=== PATIENT | female | born 1990 ===

== ENCOUNTER 2020-04-10 10:03 | Inpatient (IN) | payer BC, MEDICAID ==
[~2020-04-10] VITALS: Ht 162.6 cm; Wt 100.0 kg
[2020-04-10] MEDS ORDERED: METOCLOPRAMIDE 5 MG/ML, 2ML IV ONE (10:30)
[2020-04-10] MEDS ORDERED: SODIUM CITRATE/CITRIC ACID 30 ML UDC PO ONE (10:30)
[2020-04-10] MEDS ORDERED: LACTATED RINGERS 1,000 ML IVBOLUS ONE (10:30)
[2020-04-10] MEDS ORDERED: ONDANSETRON 2MG/ML, 2ML IVPush ONE (10:30)
[2020-04-10] MEDS: PLEASE ENTER ALLERGIES MC SCH ×2 (11:00→19:00)
[2020-04-10] MEDS ORDERED: PLEASE ENTER HEIGHT AND WEIGHT MC SCH (11:00)
[2020-04-10] MEDS ORDERED: OXYTOCIN 30U/ 0.9% NaCL 500ML 500 ML ONE (11:10)
[2020-04-10] MEDS ORDERED: SODIUM CITRATE/CITRIC ACID 30 ML UDC ONE (11:10)
[2020-04-10] MEDS ORDERED: METOCLOPRAMIDE 5 MG/ML, 2ML ONE (11:10)
[2020-04-10] MEDS ORDERED: NEWBORN KIT ONE (11:10)
[2020-04-10 11:21] LABS: BASOPHILS # (AUTO) 0.02 x10^3/uL (0-0.1); BASOPHILS % (AUTO) 0 % (0-1); EOSINOPHILS # (AUTO) 0.51 x10^3/uL (0-0.4); EOSINOPHILS % (AUTO) 4 % (1-7); LYMPHOCYTES # (AUTO) 1.74 x10^3/uL (1-3.4); LYMPHOCYTES % (AUTO) 12 % (22-44); MD NO; MEAN CORPUSCULAR HEMOGLOBIN 31.4 pg (27.0-34.8); MEAN CORPUSCULAR HGB CONC 33.8 g/dL (32.4-35.8); MEAN CORPUSCULAR VOLUME 92.8 fL (80-100); MEAN PLATELET VOLUME 9.1 fL (7.4-10.4); MONOCYTES # (AUTO) 0.61 x10^3/uL (0.2-0.8); MONOCYTES % (AUTO) 4 % (2-9); NEUTROPHILS # (AUTO) 11.23 x10^3/uL (1.8-6.8); NEUTROPHILS % (AUTO) 80 % (42-75); PLATELET COUNT 239 x10^3/uL (130-400); RED BLOOD COUNT 4.34 x10^6/uL (3.82-5.3); RED CELL DISTRIBUTION WIDTH 13.4 % (9.6-15.2)
[2020-04-10] MEDS ORDERED: FENTANYL PF 100 MCG/2ML ONE (11:40)
[2020-04-10] MEDS ORDERED: OXYTOCIN 10 UNITS/ML, 1ML ONE ×4 (11:41)
[2020-04-10] MEDS ORDERED: KETOROLAC 30 MG/1 ML ONE (11:41)
[2020-04-10] MEDS ORDERED: CEFAZOLIN 1,000 MG ONE ×2 (11:41)
[2020-04-10] MEDS: LACTATED RINGERS 1,000 ML IV SCH ×4 (12:21→22:21)
[2020-04-10] MEDS ORDERED: DIPH,PERTUSS(ACELL),TET VAC/PF NC IM-VACC PRN (12:30)
[2020-04-10] MEDS ORDERED: MEASLES,MUMPS&RUBELLA VACC/PF 0.5 ML SQ-VACC PRN (12:30)
[2020-04-10] MEDS ORDERED: MORPHINE SULFATE 4 MG/ML, 1ML IVPush PRN (12:30)
[2020-04-10] MEDS ORDERED: OXYcodone/APAP 5/325MG TABLET PO PRN ×2 (12:30)
[2020-04-10] MEDS ORDERED: morphine SULFATE 10 MG/ML, 1ML IVPush PRN ×2 (12:30→13:30)
[2020-04-10] MEDS ORDERED: ACETAMINOPHEN 325 MG TABLET PO PRN (12:30)
[2020-04-10] MEDS ORDERED: MISOPROSTOL 200 MCG TABLET PR PRN (12:30)
[2020-04-10] MEDS ORDERED: ONDANSETRON 2MG/ML, 2ML IV PRN (12:30)
[2020-04-10] MEDS ORDERED: CALCIUM CARBONATE 500 MG TAB.CHEW PO PRN (12:30)
[2020-04-10] MEDS ORDERED: EPHEDRINE 50 MG/ML, 1ML ONE (12:33)
[2020-04-10] MEDS ORDERED: DIPHENHYDRAMINE 50 MG/ML, 1ML IVPush PRN (13:30)
[2020-04-10] MEDS ORDERED: ONDANSETRON 2MG/ML, 2ML IVPush PRN (13:30)
[2020-04-10] MEDS ORDERED: OXYcodone 5 MG/5 ML ORAL.SOL UDC PO PRN (13:30)
[2020-04-10] MEDS ORDERED: LABETALOL 5MG/ML, 20ML IV PRN (13:30)
[2020-04-10] MEDS ORDERED: FENTANYL PF 100 MCG/2ML IV PRN (13:30)
[2020-04-10] MEDS ORDERED: MEPERIDINE/PF 25MG/0.5ML IVPush PRN (13:30)
[2020-04-10] MEDS ORDERED: EPHEDRINE 50 MG/ML, 1ML IVPush PRN (13:30)
[2020-04-10] MEDS ORDERED: METOCLOPRAMIDE 5 MG/ML, 2ML IVPush PRN (13:30)
[2020-04-10] MEDS: OXYTOCIN 30U/ 0.9% NaCL 500ML 500 ML IV SCH ×2 (14:00→22:21)
[2020-04-10 15:30] VITALS: BP 140/88
[2020-04-10] MEDS: ACETAMINOPHEN 325 MG TABLET PO PRN ×3 (16:56→23:30)
[2020-04-10] MEDS: KETOROLAC 30 MG/1 ML IV SCH ×3 (16:56→19:35)
[2020-04-10 18:33] LABS: AMPHETAMINE SCREEN, URINE Negative (Negative); BARBITURATE SCREEN, URINE Negative (Negative); BENZODIAZEPINE SCREEN, URINE Negative (Negative); CANNABINOID SCREEN, URINE Negative (Negative); COCAINE SCREEN, URINE Negative (Negative); METHADONE SCREEN, URINE Negative (Negative); OPIATE SCREEN, URINE Negative (Negative)
[2020-04-10 19:45] VITALS: BP 130/86
[2020-04-10 23:35] VITALS: BP 135/85
[2020-04-11] MEDS: KETOROLAC 30 MG/1 ML IV SCH ×4 (01:27→19:31)
[2020-04-11] MEDS: PLEASE ENTER ALLERGIES MC SCH ×2 (03:00→19:00)
[2020-04-11] MEDS: LACTATED RINGERS 1,000 ML IV SCH ×3 (04:21→20:21)
[2020-04-11] MEDS: ACETAMINOPHEN 325 MG TABLET PO PRN ×2 (04:42→13:51)
[2020-04-11 04:45] VITALS: BP 131/87
[2020-04-11 06:17] LABS: BASOPHILS # (AUTO) 0.03 x10^3/uL (0-0.1); BASOPHILS % (AUTO) 0 % (0-1); EOSINOPHILS # (AUTO) 0.26 x10^3/uL (0-0.4); EOSINOPHILS % (AUTO) 2 % (1-7); LYMPHOCYTES # (AUTO) 2.06 x10^3/uL (1-3.4); LYMPHOCYTES % (AUTO) 12 % (22-44); MD NO; MEAN CORPUSCULAR HEMOGLOBIN 31.2 pg (27.0-34.8); MEAN CORPUSCULAR HGB CONC 33.3 g/dL (32.4-35.8); MEAN CORPUSCULAR VOLUME 93.7 fL (80-100); MONOCYTES # (AUTO) 0.79 x10^3/uL (0.2-0.8); MONOCYTES % (AUTO) 5 % (2-9); NEUTROPHILS # (AUTO) 13.44 x10^3/uL (1.8-6.8); NEUTROPHILS % (AUTO) 81 % (42-75); PLATELET COUNT 210 x10^3/uL (130-400); RED BLOOD COUNT 3.74 x10^6/uL (3.82-5.3); RED CELL DISTRIBUTION WIDTH 13.8 % (9.6-15.2)
[2020-04-11 07:30] VITALS: BP 129/90
[2020-04-11] MEDS: SIMETHICONE 80 MG CHEW TAB PO PRN ×2 (07:31→19:31)
[2020-04-11] MEDS: DOCUSATE 100 MG CAPSULE PO PRN ×2 (07:31→19:31)
[2020-04-11] MEDS: PRENATAL VIT/IRON/FA 1 EACH TABLET PO SCH (07:31)
[2020-04-11 11:49] VITALS: BP 135/90
[2020-04-11 16:45] VITALS: BP 128/87
[2020-04-11] MEDS: OXYTOCIN 30U/ 0.9% NaCL 500ML 500 ML IV SCH (19:35)
[2020-04-11 20:28] VITALS: BP 125/83
[2020-04-12] MEDS: SIMETHICONE 80 MG CHEW TAB PO PRN (01:28)
[2020-04-12] MEDS: KETOROLAC 30 MG/1 ML IV SCH ×2 (01:28→07:59)
[2020-04-12] MEDS: ACETAMINOPHEN 325 MG TABLET PO PRN (01:29)
[2020-04-12] MEDS: OXYTOCIN 30U/ 0.9% NaCL 500ML 500 ML IV SCH (04:21)
[2020-04-12] MEDS: LACTATED RINGERS 1,000 ML IV SCH ×2 (04:21)
[2020-04-12] MEDS: DOCUSATE 100 MG CAPSULE PO PRN (08:00)
[2020-04-12 08:15] VITALS: BP 130/88
[2020-04-12] MEDS: PRENATAL VIT/IRON/FA 1 EACH TABLET PO SCH (09:00)
[2020-04-12] MEDS ORDERED: IBUPROFEN 600 MG TABLET PO PRN (12:30)
[2020-04-12] MEDS ORDERED: IBUP200T49 PO (13:15)
[2020-04-12] MEDS ORDERED: OXYC-302 PO (13:16)
== END 2020-04-12 14:29 | disposition home or self-care (01) | DRG 787 ==
LOC: EDBD → LDIP 10:03 → EDBD 10:03 → 2NW 15:21
PROVIDERS: ADMIT Obstetrics & Gynecology; ATTEND Obstetrics & Gynecology
PROC: 10D00Z1 Extraction of Products of Conception, Low, Open Approach (ICD-10-PCS; principal; 2020-04-10)
DX: O32.1XX0 Maternal care for breech presentation, not applicable or unspecified (principal); O36.4XX2 Maternal care for intrauterine death, fetus 2; O13.4 Gestational [pregnancy-induced] hypertension without significant proteinuria, complicating childbirth; O30.043 Twin pregnancy, dichorionic/diamniotic, third trimester; O69.81X0 Labor and delivery complicated by cord around neck, without compression, not applicable or unspecified; Z37.3 Twins, one liveborn and one stillborn; Z20.828 Contact with and (suspected) exposure to other viral communicable diseases; Z3A.38 38 weeks gestation of pregnancy; Z88.8 Allergy status to other drugs, medicaments and biological substances
CPT/HCPCS: 36415; 80307; 82803; 85025; 86592; 86850; 86900; 87635; 88300; 88307; G0378; J0690; J1885; J3010; J2590; J2765; J7120